=== PATIENT | male | born 1970 | race American Indian/Alaskan Native ===

== ENCOUNTER 2016-10-10 18:15 | Emergency (ER) | payer SELFPAY ==
--- NOTE | 2016-10-10 19:53 | Emergency Department Report ---
<YANETH JC - Last Filed: 10/10/16 20:43> ED General Adult HPI - General Chief complaint: Medical Clearance Stated complaint: MED REFILL Time Seen by Provider: 10/10/16 19:49 Source: patient Mode of arrival: Ambulatory Limitations: No Limitations - History of Present Illness Initial comments: Patient states he is here for refill of his 0.5 mg Klonopin's. Patient states he ran out of his meds as not been able to get back to his doctor to get a refill. Patient denies seizures. Severity scale (0 -10): 0 - Related Data Previous Rx's Medication Instructions Recorded Last Taken Type ALPRAZolam [Xanax TAB] 0.5 mg PO BID PRN #20 tab 03/08/15 Unknown Rx clonazePAM [Klonopin] 0.5 mg PO BID #12 tablet 10/10/16 Unknown Rx Allergies Allergy/AdvReac Type Severity Reaction Status Date / Time No Known Allergies Allergy Unverified 01/20/15 07:20 ED Review of Systems ROS: Stated complaint: MED REFILL Other details as noted in HPI Constitutional: denies: chills, fever Eyes: denies: eye pain, eye discharge, vision change ENT: denies: ear pain, throat pain Respiratory: denies: cough, shortness of breath, wheezing Cardiovascular: denies: chest pain, palpitations Skin: denies: rash, lesions Neurological: denies: headache, confusion, vertigo Psychiatric: anxiety, depression. denies: auditory hallucinations, visual hallucinations, homicidal thoughts, suicidal thoughts ED Past Medical Hx - Past Medical History Previous Medical History?: Yes Hx Hypertension: Yes Hx Psychiatric Treatment: Yes (Anxiety) - Surgical History Past Surgical History?: Yes Additional Surgical History: testicular torsion repair - Social History Smoking Status: Current Every Day Smoker Substance Use Type: Alcohol, Prescribed - Medications Home Medications: Home Medications Medication Instructions Recorded Confirmed Last Taken Type ALPRAZolam [Xanax TAB] 0.5 mg PO BID PRN #20 tab 03/08/15 Unknown Rx clonazePAM [Klonopin] 0.5 mg PO BID #12 tablet 10/10/16 Unknown Rx ED Physical Exam - General Limitations: No Limitations - Head Head exam: Present: atraumatic, normocephalic - Eye Eye exam: Present: normal appearance, PERRL, EOMI - ENT ENT exam: Present: normal exam, normal orophraynx, mucous membranes moist - Neck Neck exam: Present: normal inspection, full ROM. Absent: tenderness, meningismus, lymphadenopathy ED Course Vital Signs 10/10/16 18:20 Temperature 98.4 F Pulse Rate 85 Respiratory 20 Rate Blood Pressure 153/106 O2 Sat by Pulse 98 Oximetry Critical care attestation.: If time is entered above; I have spent that time in minutes in the direct care of this critically ill patient, excluding procedure time. ED Disposition Disposition: DISCHARGED TO HOME OR SELFCARE Is pt being admited?: No Condition: Stable Instructions: Anxiety (ED) Prescriptions: clonazePAM [Klonopin] 0.5 mg PO BID #12 tablet Referrals: SHANE LEMUS MD, PHD [Staff Physician] - 3-5 Days <DINESH ELIZABETH - Last Filed: 10/10/16 22:39> ED Medical Decision Making - Medical Decision Making I went to see this patient as well as the PA as I was suspicious of the patient' s request for Klonopin as the patient had a bottle of Klonopin that was filled 2 days ago at [facility] that was written for twice daily administration, for 10 pills, and the bottle is empty. On top of that the area showing the number of pills filled is mostly scratched out, although is able to see that there was a #10 or at least a double digit number written. I went to see to the patient who says that he has a history of anxiety, claustrophobia and panic attacks. He says that he has a psychiatrist that is familiar with him but he just switched jobs and lost his insurance in between and therefore has been unable to pay to see this private psychiatrist. He also has been to the [facility] in the past as well but says that they require such close follow-up that he does not feel he is able to hold down a job and see them as much today require. In speaking with the patient, the patient presents a good story and generally does seem as if he has serious anxiety issues that he is interested in overcoming as well as interested and better during himself with a stable job. I had the mental health counselor go in and speak with him to see if there are other options for this patient. In the end, the patient already has established care with a psychiatrist and will attempt to go back and see him and see if some type of financial plan or sliding scale payment can be done. If that is not the case, that he will go back and try to see the [facility] facility. In the meantime I will give the patient a small amount of the medication so that he does not have any mental breakdown or any type of withdrawal. However I did that the patient know that this is not a medication that she be used on the job or mix with alcohol, or taken while operating any heavy machinery or automobile. The patient does not have any suicidal or homicidal ideations, hallucinations and does not appear to have any psychosis and is not a candidate to be made a 1013.
[2016-10-10 23:08] VITALS: BP 165/84
== END 2016-10-10 23:04 | disposition home or self-care (01) ==
LOC: ED 18:15
DX: Z76.0 Encounter for issue of repeat prescription (principal); I10 Essential (primary) hypertension; F41.9 Anxiety disorder, unspecified; F17.200 Nicotine dependence, unspecified, uncomplicated
CPT/HCPCS: 99282